=== PATIENT | female | born 1985 | race Caucasian/White ===

== ENCOUNTER 2020-06-05 09:55 | Emergency (ER) | payer BC ==
[2020-06-05 11:42] LABS: HEMOGLOBIN 13.7 gm/dl (12.3-15.3); RED BLOOD COUNT 5.37 M/UL (4.00-5.10); WHITE BLOOD COUNT 5.5 K/UL (4.5-11.0)
[2020-06-05 12:29] LABS: BUN/CREATININE RATIO 13 (0-10)
[2020-06-05] MEDS ORDERED: MACROBID 100 M100 MG PO (13:31)
== END 2020-06-05 11:41 | disposition home or self-care (01) ==
LOC: ER1 09:55
PROVIDERS: Physician Assistant
DX: N39.0 Urinary tract infection, site not specified (principal); N83.202 Unspecified ovarian cyst, left side; U07.1 COVID-19; I10 Essential (primary) hypertension; Z90.710 Acquired absence of both cervix and uterus; Z87.19 Personal history of other diseases of the digestive system
CPT/HCPCS: 71045; 80053; 81001; 84703; 85025; 87086; 99284; Q9967